=== PATIENT | female | born 1960 | race Caucasian/White ===

== ENCOUNTER 2016-12-25 12:43 | Emergency (ER) | payer OTHER ==
[2016-12-25] MEDS ORDERED: VITAMIN B-12250 MC2 PO (12:56)
[2016-12-25] MEDS ORDERED: TYLENOL EXTRA500 M1 PO (12:57)
[2016-12-25] MEDS ORDERED: IBUPROFEN800 M1 PO (14:26)
[2016-12-25] MEDS ORDERED: AUGMENTIN 875-1 EAC2 PO (14:26)
== END 2016-12-25 14:46 ==
LOC: EDMED 12:43
DX: G44.209 Tension-type headache, unspecified, not intractable (principal); J32.9 Chronic sinusitis, unspecified; Z87.891 Personal history of nicotine dependence; Z90.89 Acquired absence of other organs
CPT/HCPCS: J0780; J1200; J1885; J7030